=== PATIENT | male | born 2000 | race Caucasian/White ===

== ENCOUNTER 2021-08-06 12:07 | Emergency (ER) | payer OTHER ==
[2021-08-06 12:27] VITALS: BP 135/86; PULSE 76; TEMP 97.9; BMI 29.6
[2021-08-06] MEDS ORDERED: SODIUM CHLORIDE 0.9% 500 ML INFUS.BAG IV ONE (14:06)
[2021-08-06] MEDS ORDERED: ONDANSETRON 4 MG/2 ML VIAL IVPUSH ONE (14:06)
[2021-08-06] MEDS ORDERED: ONDANSETRON 4 MG/2 ML VIAL ONE (14:17)
[2021-08-06 15:07] LABS: BASO % 0.3 % (0-2.0); EOS % 1.4 % (0-4.5); HEMATOCRIT 48.5 % (35.4-49); HEMOGLOBIN 16.2 GM/dL (11.7-16.9); LYMPH % 8.7 % (8-40); MCH 26.9 pg (25.7-33.7); MCHC 33.3 g/dl (32.0-35.9); MEAN CELL VOLUME 80.8 fl (80-96); MEAN PLT VOLUME 9.9 fl (7.5-11.1); MONO % 6.8 % (3.8-10.2); NEUT % 82.8 % (42.8-82.8); PLATELET COUNT 183 10^3/uL (134-434); RDW 13.7 % (11.9-15.9); WHITE BLOOD COUNT 12.7 K/mm3 (4.0-10.0)
[2021-08-06 15:19] LABS: CALCIUM 9.9 mg/dL (8.5-10.1)
[2021-08-06 15:20] LABS: ALBUMIN 4.6 g/dl (3.4-5.0); BLOOD UREA NITROGEN 12.7 mg/dL (7-18)
[2021-08-06 15:24] LABS: BILIRUBIN,TOTAL 0.8 mg/dL (0.2-1); TOT PROT 8.7 g/dl (6.4-8.2)
== END 2021-08-06 16:35 | disposition home or self-care (01) ==
LOC: JER 12:07
PROC: 3E033GC Introduction of Other Therapeutic Substance into Peripheral Vein, Percutaneous Approach (ICD-10-PCS; principal; 2021-08-06)
DX: S60.931A Unspecified superficial injury of right thumb, initial encounter (principal); R11.2 Nausea with vomiting, unspecified; W23.1XXA Caught, crushed, jammed, or pinched between stationary objects, initial encounter
CPT/HCPCS: 36415; 80053; 83690; 85025; 99284-25